=== PATIENT | male | born 1985 | race Caucasian/White ===

== ENCOUNTER 2016-11-12 08:59 | Day surgery (SDC) | payer SELFPAY ==
[~2016-11-12] VITALS: Ht 198.1 cm; Wt 182.0 kg
--- NOTE | 2016-11-13 08:12 | OR ---
ADMIT: 11/12/2016 RM/LOC: [facility] MR#: [id number] [address] [address] ROSA ALTAGRACIA Lewis [address] [place] [address] Operative/Delivery Room Report SEX: M AGE: 30 : 1985 SURGERY DATE: 11/12/2016 SURGEON: Maria D Dubon MD INTERNATIONAL RELATIONS PROFESSOR: None. PREOPERATIVE DIAGNOSES: 1. Left shoulder pain. 2. Left shoulder arthritis. POSTOPERATIVE DIAGNOSES: 1. Left shoulder pain. 2. Left shoulder arthritis. OPERATION: Left shoulder joint injection, anterior approach. INDICATIONS FOR PROCEDURE: The patient is a pleasant gentleman with history of chronic left shoulder, comes here for planned left shoulder injection. ANESTHESIA: Local without sedation. ESTIMATED BLOOD LOSS: Zero. COMPLICATIONS: None immediately evident. DESCRIPTION OF THE PROCEDURE: After patient was seen in preoperative area, vital signs were taken. Prior to procedure, the risks, benefits, and alternative therapies were discussed at length. Patient consent was obtained and updated. The patient was taken to Fluoroscopy Suite and placed on a fluoroscopy table in a prone position. Pressure points were padded to comfort, monitors applied and a timeout performed. C-arm was brought in to identify the left shoulder joint. Lidocaine plain, 1%, approximately 1 mL was used to anesthetize the skin, underlying ADMIT: 11/12/2016 RM/LOC: [facility] MR#: [id number] [address] [address] ALTAGRACIA LEE [address] [place] [address] Operative/Delivery Room Report SEX: M AGE: 30 : 1985 subcutaneous tissue. A 3.5 inch 22-gauge curved-tip needle was then advanced through the anesthetized skin and placed into the left shoulder joint space. Isovue-300 was injected into joint and showed good spread into the shoulder joint. After correct placement was confirmed, 3 mL of 1% lidocaine and 80 mg of Depo-Medrol were injected. The patient tolerated the procedure well without any complications. The patient was then brought to PACU where he recovered nicely. PLAN: The patient was examined twenty minutes after the conclusion of the procedure and had 70% reduction of pain. Discharge instructions were given, followup scheduled. The patient was discharged home with a certified driver examiner. Maria D Dubon MD/ divya JOB #: [id number] CC: Maria D Dubon, Attending Physician Brenna Austin APRN-COMPOUNDING SCALER, Family Physician
== END 2016-11-12 11:00 | disposition home or self-care (01) ==
LOC: SSS 08:59
PROC: 3E0U3BZ Introduction of Anesthetic Agent into Joints, Percutaneous Approach (ICD-10-PCS; principal; 2016-11-12)
PROC: 3E0U33Z Introduction of Anti-inflammatory into Joints, Percutaneous Approach (ICD-10-PCS; principal; 2016-11-12)
DX: G89.29 Other chronic pain (principal); M19.012 Primary osteoarthritis, left shoulder; Z88.8 Allergy status to other drugs, medicaments and biological substances; Z79.899 Other long term (current) drug therapy; Z87.891 Personal history of nicotine dependence

== ENCOUNTER 2016-12-17 07:33 | Day surgery (SDC) | payer SELFPAY ==
[~2016-12-17] VITALS: Ht 198.1 cm; Wt 181.0 kg
--- NOTE | 2016-12-18 08:19 | OR ---
ADMIT: 12/17/2016 RM/LOC: [facility] MR#: [id number] [address] [address] ALTAGRACIA LEE [address] [place] [address] Operative/Delivery Room Report SEX: M AGE: 31 : 1985 SURGERY DATE: 12/17/2016 SURGEON: Maria D Dubon MD HOME HOSPICE AIDE: None. PREOPERATIVE DIAGNOSES: 1. Right knee pain. 2. Right knee arthritis. POSTOPERATIVE DIAGNOSES: 1. Right knee pain. 2. Right knee arthritis. NAME OF PROCEDURE: Right knee injection with Synvisc-One. INDICATION FOR PROCEDURE: ANESTHESIA: Local without sedation. ESTIMATED BLOOD LOSS: Zero. COMPLICATIONS: None immediately evident. DESCRIPTION OF THE PROCEDURE: After the patient was seen in the preoperative area, vitals signs were taken. Prior to the procedure, the risks, benefits, and alternative therapies were discussed at length. Patient consent was obtained and updated. The patient was taken to the fluoroscopy suite and placed on the fluoroscopy table in a supine position. Pressure points were padded to comfort, monitors applied, and a timeout performed. C-arm was brought in to identify the right knee joint. Lidocaine plain 1%, approximately 1 mL was used to anesthetize the skin and underlying ADMIT: 12/17/2016 RM/LOC: [facility] MR#: [id number] [address] [address] ALATGRACIA LEE [address] [place] [address] Operative/Delivery Room Report SEX: M AGE: 31 : 1985 subcutaneous tissue. A 3.5-inch 22-gauge curved-tip spinal needle was advanced through the anesthetized skin and placed into the right knee joint space. Isovue-300 was injected into joint and showed good spread into the knee joint. After the correct placement was confirmed, a 6 mL solution consisting of Synvisc-one was injected. The patient tolerated the procedure well without any complications. The patient was then brought to the PACU where the patient recovered nicely. PLAN: The patient was examined after 20 minutes of procedure and had 70% reduction of pain. Discharge instructions were given and followup scheduled. The patient was discharged home with a laundry route driver. Maria D Dubon MD/ divya JOB #: [id number] CC: Maria D Dubon, Attending Physician FAMILY PHYSICIAN, Family Physician
== END 2016-12-17 08:47 | disposition home or self-care (01) ==
LOC: SSS 07:33
DX: M17.11 Unilateral primary osteoarthritis, right knee (principal); Z88.8 Allergy status to other drugs, medicaments and biological substances; Z79.899 Other long term (current) drug therapy